=== PATIENT | male | born 1975 | race Caucasian/White ===

== ENCOUNTER 2019-05-29 08:00 | Emergency (ER) | payer OTHER ==
[~2019-05-29] VITALS: Ht 172.7 cm; Wt 83.0 kg
[2019-05-29 08:09] VITALS: BP 148/102
--- NOTE | 2019-05-29 08:11 | NUR ---
Patient ambulated to bed 6. RN evaluating patient at bedside.
--- NOTE | 2019-05-29 08:35 | NUR ---
44 YO MALE CO CHEST PAIN THAT COMES AND GOES FOR ABOUT 2M. NO CHEST PAIN AT THE MOMENT. PT CO OF HEADACHE FOR 2D. PT STATES PAIN IS 6/10 IN HIS HEAD. STATES THAT IT IS A POUNDING FEELING. PT RECENTLY DX WITH HTN AND IS NOT CURRENTLY TAKING MEDS OF TODAY. NO OTHER MED HX REPORTED. PT ISNOT CURRENTLY ON ANY RX MEDS. PT HAS A REFERRAL FOR CARDIOLOGY TO BE SEEN. PT IS AOX4.
--- NOTE | 2019-05-29 09:00 | NUR ---
Dr. Hernandez is evaluating the patient at bedside.
[2019-05-29 09:28] VITALS: BP 137/91
--- NOTE | 2019-05-29 09:29 | NUR ---
Patient discharged with v/s stable. Written and verbal after care instructions given and explained. Patient alert, oriented and verbalized understanding of instructions. Ambulatory with steady gait. All questions addressed prior to discharge. ID band removed. Patient advised to follow up with PMD. Rx of ATARAX AND MOTRIN given. Patient educated on indication of medication including possible reaction and side effects. Opportunity to ask questions provided and answered.
== END 2019-05-29 09:29 | disposition home or self-care (01) ==
LOC: MED 08:00
DX: F41.9 Anxiety disorder, unspecified (principal); I10 Essential (primary) hypertension; Z98.890 Other specified postprocedural states
CPT/HCPCS: 93005; 99284

== ENCOUNTER 2019-06-08 03:15 | Emergency (ER) | payer OTHER ==
[~2019-06-08] VITALS: Ht 172.7 cm; Wt 80.7 kg
[2019-06-08 03:25] VITALS: BP 127/90
--- NOTE | 2019-06-08 03:25 | NUR ---
TO BED # 11 AMBULATORY
[2019-06-08] MEDS ORDERED: MORPHINE SULFATE 4 MG/ML SYR IVP ONE (03:35)
[2019-06-08 03:52] LABS: BASOPHILS % (AUTO) 0.4 % (0.0-2.0); EOSINOPHILS # (AUTO) 0.4 K/uL (0-0.4); EOSINOPHILS % (AUTO) 6.8 % (0.0-4.0); HEMATOCRIT 44.6 % (36-52); HEMOGLOBIN 15.4 g/dL (12.0-18.0); LYMPHOCYTES # (AUTO) 1.8 K/uL (2.0-11.5); LYMPHOCYTES % (AUTO) 32.6 % (20.5-51.1); MEAN CORPUSCULAR HEMOGLOBIN 32 pg (27-31); MEAN CORPUSCULAR HGB CONC 35 g/dL (33-37); MEAN CORPUSCULAR VOLUME 93.4 fL (80-94); MONOCYTES # (AUTO) 0.6 K/uL (0.8-1.0); MONOCYTES % (AUTO) 9.7 % (1.7-9.3); NEUTROPHILS # (AUTO) 2.9 K/uL (1.8-7.7); NEUTROPHILS % (AUTO) 50.5 % (42.2-75.2); PLATELET COUNT (AUTO) 214 K/uL (140-450); RED BLOOD CELL COUNT(AUTO) 4.77 MIL/uL (4.20-6.10); RED CELL DISTRIBUTION WIDTH 12.9 % (11.6-13.7); WHITE BLOOD COUNT (AUTO) 5.7 K/uL (4.8-10.8)
--- NOTE | 2019-06-08 04:03 | NUR ---
PT BIB SELF C/O INTERMITENT CP X1 WEEK. PT REPORTS CRAMPING MIDSTERNAL CP PRECEPITATED BY RAPID HEART BEAT AND FOLLOWED BY NAUSEA AND HEADACHE. PT REPORTS PAIN AT 2/10 AT THIS TIME BUT HE HAS 6/10 BODY PAIN. PT SEEN HERE LAST WEEK FOR SAME SYMPTOMS AND GIVEN HYDRALAZINE, PT STATES HE IS UNABLE TO TAKE MEDS BECAUSE THEY MAKE HIM DROWSY. VSS. PMH:HTN
[2019-06-08 04:07] LABS: ALBUMIN 3.9 g/dL (3.4-5.0); ANION GAP 12.7 (8-16); CARBON DIOXIDE 26.9 mmol/L (21-32); POTASSIUM 3.6 mmol/L (3.5-5.1); TOTAL BILIRUBIN 1.3 mg/dL (0.0-1.0)
[2019-06-08 04:09] LABS: PROTHROMBIN TIME 10.1 secs (10.8-13.4)
[2019-06-08] MEDS ORDERED: ACETAMINOPHEN 325 MG TAB PO ONE (05:15)
[2019-06-08 05:31] VITALS: BP 115/78
--- NOTE | 2019-06-08 05:31 | NUR ---
Patient discharged with v/s stable. Written and verbal after care instructions given and explained. Patient verbalized understanding. Ambulatory with steady gait. All questions addressed prior to discharge. Advised to follow up with PMD.
== END 2019-06-08 05:31 | disposition home or self-care (01) ==
LOC: MED 03:15
DX: R07.89 Other chest pain (principal); I10 Essential (primary) hypertension
CPT/HCPCS: 36415; 71045; 80053; 83880; 84484; 85025; 85610; 85730; 93005; 99285; Q0092; J2270